=== PATIENT | female | born 1985 | race Caucasian/White ===

== ENCOUNTER 2016-09-11 05:22 | Inpatient (IN) | payer BC ==
[~2016-09-11] VITALS: Ht 167.6 cm; Wt 77.7 kg
[2016-09-11] VITALS (19 sets, daily range): BP systolic 104–139; BP diastolic 54–87; PULSE 57–91; TEMP 97.5–98.4
[~2016-09-11 05:22] MED LIST: MOTRIN 800800 MG/TAB PO; PERCOCET 325 MG1 TA2 PO; PRENATAL1 TA1; PRENATAL1 TA1 PO
[2016-09-11 06:40] LABS: BASO % 0.4 % (0.0-2.0); EOS # 0.2 (0.0-0.7); EOS % 2.9 % (0-4.0); GRAN # 4.8 (1.4-6.5); LYMPH # 1.7 (1.2-3.4); LYMPH % 22.8 % (20.0-51.0); MEAN CELL VOLUME 85 fl (80.0-100.0); MEAN CORPUSCULAR HGB CONC 35 g/dl (33.0-37.0); MEAN PLATELET VOLUME 9.8 fl (7.4-10.4); MONO # 0.6 (0.1-0.6); MONO % 8.2 % (1.7-9.3); PLATELET COUNT 262 K/mm3 (130-400); RED BLOOD COUNT 3.91 M/mm3 (4.10-5.30); REDCELL DISTRIBUTION WIDTH-CV 12.5 % (11.5-14.5); WHITE BLOOD COUNT 7.4 K/mm3 (4.8-10.8)
[2016-09-11 06:48] LABS: HEMATOCRIT 33.3 % (37.0-47.0); HEMOGLOBIN 11.6 g/dl (12.5-16.0); MEAN CORPUSCULAR HEMOGLOBIN 30 pg (27.0-31.0)
[2016-09-12 07:00] VITALS: BP 97/63; PULSE 79; TEMP 97.9
[2016-09-12 07:10] LABS: BASO % 0.4 % (0.0-2.0); EOS # 0.3 (0.0-0.7); EOS % 4.2 % (0-4.0); GRAN # 5.4 (1.4-6.5); GRAN % 70.2 % (42.2-75.2); LYMPH # 1.4 (1.2-3.4); MEAN CELL VOLUME 89 fl (80.0-100.0); MEAN CORPUSCULAR HGB CONC 34 g/dl (33.0-37.0); MEAN PLATELET VOLUME 9.5 fl (7.4-10.4); MONO # 0.5 (0.1-0.6); MONO % 6.7 % (1.7-9.3); PLATELET COUNT 211 K/mm3 (130-400); RED BLOOD COUNT 3.18 M/mm3 (4.10-5.30); REDCELL DISTRIBUTION WIDTH-CV 12.7 % (11.5-14.5); WHITE BLOOD COUNT 7.6 K/mm3 (4.8-10.8)
[2016-09-12 07:13] LABS: HEMATOCRIT 28.2 % (37.0-47.0); HEMOGLOBIN 9.5 g/dl (12.5-16.0); MEAN CORPUSCULAR HEMOGLOBIN 30 pg (27.0-31.0)
[2016-09-12] MEDS ORDERED: IBU800 M1 PO (12:47)
[2016-09-12] MEDS ORDERED: PERCOCET 325 MG1 TA2 PO (12:48)
[2016-09-12 15:34] VITALS: BP 99/56; PULSE 73; TEMP 98.1
[2016-09-12 20:30] VITALS: BP 106/47; PULSE 71; TEMP 98.1
[2016-09-13 08:26] VITALS: BP 102/63; PULSE 75; TEMP 98.2
== END 2016-09-13 15:25 | disposition home or self-care (01) | DRG 766 ==
LOC: OB 05:22 → LDR 12:53 → OB 09-13 15:25
PROVIDERS: Obstetrics & Gynecology
PROC: 10D00Z1 Extraction of Products of Conception, Low, Open Approach (ICD-10-PCS; principal; 2016-09-11)
DX: O44.03 Complete placenta previa NOS or without hemorrhage, third trimester (principal); O69.81X0 Labor and delivery complicated by cord around neck, without compression, not applicable or unspecified; Z3A.36 36 weeks gestation of pregnancy; Z37.0 Single live birth
CPT/HCPCS: J0690; J1885; J2270; J2370; J2405; J7120